=== PATIENT | female | born 1965 | race African-American/Black ===

== ENCOUNTER 2019-09-26 10:16 | Emergency (ER) | payer OTHER ==
[~2019-09-26] VITALS: Ht 167.6 cm; Wt 113.4 kg
[2019-09-26] MEDS ORDERED: GABAPENTIN800 M1 PO (11:07)
[2019-09-26] MEDS ORDERED: DULOXETINE HCL40 MG PO (11:08)
[2019-09-26] MEDS ORDERED: COMBIVENT INH (11:08)
[2019-09-26] MEDS ORDERED: IPRAT-ALBUT 0.5-3 ML INH (11:09)
[2019-09-26] MEDS ORDERED: ZOLOFT100 MG PO (11:10)
[2019-09-26] MEDS ORDERED: ROXICODONE30 MG PO (11:10)
[2019-09-26] MEDS ORDERED: SERTRALINE HCL100 MG PO (11:11)
[2019-09-26] MEDS ORDERED: AMLODIPINE BESY10 MG PO (11:14)
[2019-09-26 12:07] LABS: AMP/METHAMP POSITIVE (Negative); BARBITURATES Negative (Negative); BENZODIAZEPINES Negative (Negative); COCAINE POSITIVE (Negative); METHADONE Negative (Negative); OPIATES Negative (Negative); PCP Negative (Negative)
[2019-09-26 12:51] LABS: BASOPHILS 2.5 % (0.0-2.0); EOSINOPHILS 0.9 % (0.0-3.0); HEMATOCRIT 40.7 % (37.0-47.0); HEMOGLOBIN 13.5 gm/dL (12.0-15.0); LYMPHOCYTES 41.2 % (24.0-44.0); MCH 29.7 pg (26.0-34.0); MCHC 33.2 g/dL (28.0-37.0); MCV 89.4 fL (80.0-100.0); MONOCYTES 5.3 % (1.0-8.0); PLATELET COUNT 224 thou/uL (150-400); POLYS 50.1 % (36.0-66.0); RBC 4.55 mil/uL (4.20-5.00); WBC 4.1 thou/uL (4.0-11.0)
[2019-09-26 12:55] LABS: CREATININE 0.9 mg/dL (0.6-1.0); POTASSIUM 3.3 mmol/L (3.5-5.1)
[2019-09-26 13:58] VITALS: BP 171/98
== END 2019-09-26 13:30 | disposition home or self-care (01) ==
LOC: ER 10:16
PROVIDERS: Emergency Medicine
DX: M54.2 Cervicalgia (principal); G43.909 Migraine, unspecified, not intractable, without status migrainosus; R40.0 Somnolence; M79.602 Pain in left arm; F17.210 Nicotine dependence, cigarettes, uncomplicated; Z86.73 Personal history of transient ischemic attack (TIA), and cerebral infarction without residual deficits; Z79.899 Other long term (current) drug therapy; Z91.041 Radiographic dye allergy status; Z91.011 Allergy to milk products

== ENCOUNTER 2020-10-03 14:51 | Emergency (ER) | payer OTHER ==
[~2020-10-03] VITALS: Ht 167.6 cm; Wt 104.3 kg
[~2020-10-03 14:51] MED LIST: AMLODIPINE BESY10 MG PO; COMBIVENT INH; DULOXETINE HCL40 MG PO; GABAPENTIN800 M1 PO; IPRAT-ALBUT 0.5-3 ML INH; ROXICODONE30 MG PO; SERTRALINE HCL100 MG PO; ZOLOFT100 MG PO
[2020-10-03 15:01] VITALS: BP 163/88
[2020-10-03] MEDS ORDERED: PROMETH-CODEIN 65 ML PO (16:20)
[2020-10-04] MEDS ORDERED: PROMETH-CODEIN 65 ML PO (12:17)
== END 2020-10-03 16:20 | disposition home or self-care (01) ==
LOC: ER 14:51
DX: U07.1 COVID-19 (principal); J45.909 Unspecified asthma, uncomplicated; I11.0 Hypertensive heart disease with heart failure; F17.210 Nicotine dependence, cigarettes, uncomplicated; I50.9 Heart failure, unspecified; Z20.822 Contact with and (suspected) exposure to COVID-19; Z91.041 Radiographic dye allergy status; Z88.6 Allergy status to analgesic agent; Z91.011 Allergy to milk products; Z91.012 Allergy to eggs